=== PATIENT | female | born 1970 | race African-American/Black ===

== ENCOUNTER 2016-10-24 23:25 | Emergency (ER) | payer SELFPAY ==
[~2016-10-24] VITALS: Ht 170.2 cm; Wt 122.5 kg
[~2016-10-24 23:25] MED LIST: CALCIUM CHLORIDE 1,000 MG/10 ML DISP.SYRIN IV ONE; EPINEPHRINE (1:10,000) SYRINGE 1 MG/10 ML DISP.SYRIN IVP ONE; FEE EMEERGENCY 1 MIN EA MC ONE; SODIUM BICARBONATE SYR 50 MEQ/50 ML DISP.SYRIN IV ONE
[2016-10-24] MEDS ORDERED: CALCIUM CHLORIDE 1,000 MG/10 ML DISP.SYRIN ONE (23:30)
== END 2016-10-25 02:05 | disposition expired ==
LOC: ER 23:28 → EDBD 23:28 → ER 10-25 02:05
DX: I46.9 Cardiac arrest, cause unspecified (principal)
CPT/HCPCS: 31500; 32554; 99285; J0171; J3490 ×3